=== PATIENT | male | born 1935 | race Hispanic/Latino ===

== ENCOUNTER 2020-12-19 10:40 | Emergency (ER) | payer MEDICARE ==
[~2020-12-19] VITALS: Ht 162.6 cm; Wt 68.5 kg
[2020-12-19 10:44] VITALS: BP 122/61
[2020-12-19 12:29] VITALS: BP 130/66
== END 2020-12-19 12:34 | disposition home or self-care (01) ==
LOC: EDH 10:40
DX: K40.90 Unilateral inguinal hernia, without obstruction or gangrene, not specified as recurrent (principal); I10 Essential (primary) hypertension; I25.10 Atherosclerotic heart disease of native coronary artery without angina pectoris; Z88.0 Allergy status to penicillin
CPT/HCPCS: 99281